=== PATIENT | male | born 1985 | race Caucasian/White ===

== ENCOUNTER → 2018-02-02 | Outpatient (CLI) | payer OTHER ==
--- NOTE | 2018-02-02 08:44 | RAD ---
Abdominal ultrasound, 02/02/2018: HISTORY: Elevated liver enzymes The gallbladder is within normal limits in size. It contains multiple echogenic foci with posterior acoustic shadowing compatible with gallstones. The gallbladder wall is not significantly thickened. No pericholecystic edema is seen. The common hepatic duct is of normal caliber. The visualized portions of the liver and both kidneys are unremarkable. The spleen is of normal size. The pancreas was poorly defined due to overlying bowel. The visualized portions of the aorta and inferior vena cava are unremarkable. No free fluid is evident in the abdomen. IMPRESSION: Cholelithiasis Electronically signed by: Parker Boyer MD (02/02/2018 8:40 AM) [facility]
== END | disposition home or self-care (01) ==
LOC: US 07:34
PROVIDERS: ATTEND Physician Assistant
DX: K80.20 Calculus of gallbladder without cholecystitis without obstruction (principal)
CPT/HCPCS: 76700

== ENCOUNTER 2018-03-08 11:53 | Emergency (ER) | payer OTHER ==
[~2018-03-08] VITALS: Ht 177.8 cm; Wt 106.6 kg
[2018-03-08] MEDS ORDERED: 0.9 % SODIUM CHLORIDE 10 ML DISP.SYRIN. IV PRN (12:15)
[2018-03-08] MEDS: IV NORMAL SALINE 1,000ML 1,000 ML IV SCH ×2 (12:19→12:56)
--- NOTE | 2018-03-08 12:23 | PHYS DOC ---
Past History Past Medical History: Gallstones Adult General Chief Complaint Chief Complaint: ABDOMINAL PAIN HPI HPI 32-year-old male patient with history of cholelithiasis was scheduled to have surgery 4 days ago but because of sickness his surgery was postponed. Patient complaining of right upper quadrant constant pain since 7 AM with radiation to the back and rated his pain 10 over 10. Patient complaining of nausea and 3 episodes of vomiting without diarrhea, fever and chills, urinary symptom. Patient states he had fatty food last night. Review of Systems Review of Systems Constitutional: Denies fever or chills [] Eyes: Denies change in visual acuity, redness, or eye pain [] HENT: Denies nasal congestion or sore throat [] Respiratory: Denies cough or shortness of breath [] Cardiovascular: No additional information not addressed in HPI [] GI: Reports abdominal pain, nausea, vomiting, denies bloody stools or diarrhea [ ] : Denies dysuria or hematuria [] Musculoskeletal: Denies back pain or joint pain [] Integument: Denies rash or skin lesions [] Neurologic: Denies headache, focal weakness or sensory changes [] Endocrine: Denies polyuria or polydipsia [] All other systems were reviewed and found to be within normal limits, except as documented in this note. Current Medications Current Medications Current Medications Medications (Trade) Dose Ordered Sig/Zainab Start Time Stop Time Status Last Admin Dose Admin Morphine Sulfate (Morphine 4mg Syringe) 4 mg 1X ONCE 03/08/18 12:15 03/08/18 12:16 UNV Ondansetron HCl (Zofran) 4 mg 1X ONCE 03/08/18 12:15 03/08/18 12:16 UNV Sodium Chloride (Normal Saline Flush) 10 ml QSHIFT PRN 03/08/18 12:15 UNV Physical Exam Physical Exam Constitutional: Well developed, well nourished, moderate distress, non-toxic appearance. [] HENT: Normocephalic, atraumatic, oropharynx dry, no oral exudates, nose normal. [] Eyes: PERRLA, EOMI, conjunctiva normal, no discharge. [] Neck: Normal range of motion, no tenderness, supple, no stridor. [] Cardiovascular:Heart rate regular rhythm, no murmur [] Lungs & Thorax: Bilateral breath sounds clear to auscultation [] Abdomen: Bowel sounds normal, soft, right upper quadrant tenderness with positive Vail sign, no masses, no pulsatile masses. [] Skin: Warm, dry, no erythema, no rash. [] Back: No tenderness, no CVA tenderness. [] Extremities: No tenderness, no cyanosis, no clubbing, ROM intact, no edema. [] Neurologic: Alert and oriented X 3, normal motor function, normal sensory function, no focal deficits noted. [] Psychologic: Affect anxious, mood normal. [] EKG EKG [] Radiology/Procedures Radiology/Procedures [] Course & Med Decision Making Course & Med Decision Making Pertinent Labs reviewed. (See chart for details) Evaluation of patient in ER showed 32-year-old male patient with history of cholelithiasis complaining of severe right upper quadrant pain with episodes of nausea and vomiting. Patient had moderate distress with right upper quadrant tenderness at arrival to ER and treated with IV fluid and Zofran and morphine and felt better. Labs was unremarkable. Dr. Lee patient surgeon at [facility] informed at 1312 and agreed with transferring patient to [facility] for possible surgery tomorrow. Dr. Russell accepted transfer to [facility] at 1314. Dragon Disclaimer Dragon Disclaimer This electronic medical record was generated, in whole or in part, using a voice recognition dictation system. Departure Departure: Impression: Primary Impression: Biliary colic Additional Impressions: Nausea and vomiting Cholelithiasis Disposition: XF [facility] HOSP (to [facility] 1314) Admitting Physician: Robbi Russell (accepted transfer to [facility] at 1314) Condition: IMPROVED Referrals: PETE CARDOZA (PCP) Problem Qualifiers SANDRINE ALEXANDER MD Mar 08, 2018 12:23
[2018-03-08 12:27] LABS: BASO # 0.1 x10^3/uL (0.0-0.2); BASO % 1 % (0-3); EOS # 0.1 x10^3/uL (0.0-0.7); EOS % 1 % (0-3); HEMATOCRIT 46.7 % (39.0-53.0); LYMPH # 1.2 x10^3/uL (1.0-4.8); LYMPH % 14 % (24-48); MEAN CORPUSCULAR HEMOGLOBIN 31 pg (25-35); MEAN CORPUSCULAR HGB CONC 34 g/dL (31-37); MEAN CORPUSCULAR VOLUME 90 fL (79-100); MONO # 0.5 x10^3/uL (0.0-1.1); MONO % 6 % (0-9); NEUT # 6.8 x10^3uL (1.8-7.7); NEUT % 78 % (31-73); PLATELET COUNT 224 x10^3/uL (140-400); RED BLOOD COUNT 5.19 x10^6/uL (4.30-5.70); RED CELL DISTRIBUTION WIDTH 12.4 % (11.5-14.5); WHITE BLOOD COUNT 8.7 x10^3/uL (4.0-11.0)
[2018-03-08 12:40] LABS: ALBUMIN 4.4 g/dL (3.4-5.0); ALBUMIN/GLOBULIN RATIO 1.1 (1.0-1.7); CALCIUM 9.7 mg/dL (8.5-10.1); GFR 86.1; POTASSIUM 3.7 mmol/L (3.5-5.1); TOTAL BILIRUBIN 0.4 mg/dL (0.2-1.0); TOTAL PROTEIN 8.4 g/dL (6.4-8.2)
[2018-03-08] MEDS ORDERED: ONDANSETRON PF 4 MG/2 ML VIAL. IV ONE (12:45)
[2018-03-08] MEDS ORDERED: MORPHINE SULFATE 4 MG/ML DISP.SYRIN. IV ONE (12:45)
[2018-03-08] MEDS ORDERED: IV NORMAL SALINE 1,000ML 1,000 ML IV ONE (13:30)
[2018-03-08] MEDS ORDERED: KETOROLAC 30 MG/ML VIAL. IV ONE (14:00)
[2018-03-08 14:42] VITALS: BP 107/54
[2018-03-08 15:08] LABS: BILIRUBIN,URINE NEG (NEG); CLARITY,URINE CLEAR; COLOR,URINE YELLOW; GLUCOSE,URINE NEG (NEG); NITRITE,URINE NEG (NEG); UROBILINOGEN,URINE 0.2 mg/dL (0.2 mg/dL)
[2018-03-08 15:09] LABS: BACTERIA,URINE 0 /HPF (0-FEW); SQUAMOUS EPITHELIAL CELL,UR FEW /LPF; WBC,URINE OCC /HPF (0-4)
== END 2018-03-08 14:45 | disposition short-term general hospital (02) ==
LOC: ER 11:53
DX: K80.70 Calculus of gallbladder and bile duct without cholecystitis without obstruction (principal)
CPT/HCPCS: 36415; 80053; 81001; 83690; 85025; 96361; 96374; 96375; 99285; J1885; J2270; J2405; J7030

== ENCOUNTER → 2018-10-22 | Outpatient (CLI) | payer OTHER ==
--- NOTE | 2018-10-22 08:53 | RAD ---
Thoracic spine, 10/22/2018: HISTORY: Back pain There is a minimal thoracic scoliosis. The thoracic vertebral heights are well-maintained. No fracture or subluxation is evident. The paraspinous soft tissues are unremarkable. IMPRESSION: 1. Slight thoracic scoliosis. 2. No acute bony abnormality is detected. Electronically signed by: Parker Boyer MD (10/22/2018 8:51 AM) [facility]
== END | disposition home or self-care (01) ==
LOC: PMG 08:01
PROVIDERS: ATTEND Physician Assistant Medical
DX: M54.6 Pain in thoracic spine (principal)
CPT/HCPCS: 72072

== ENCOUNTER → 2018-11-08 | Outpatient (CLI) | payer OTHER ==
--- NOTE | 2018-11-08 12:52 | RAD ---
Left hand radiograph 11/08/2018 12:43 PM INDICATION: Injury to the index finger with swelling COMPARISON: None available. TECHNIQUE: 3 views of the left hand are provided. FINDINGS: There is no acute fracture or dislocation. Bone mineralization is within normal limits. Joint spaces are maintained. Regional soft tissues are within normal limits. There is no soft tissue gas or osseous erosion. IMPRESSION: No acute fracture or dislocation. Electronically signed by: Adele Hilario MD (11/08/2018 12:50 PM) [id number]
== END | disposition home or self-care (01) ==
LOC: PMG 12:14
PROVIDERS: ATTEND Physician Assistant Medical
DX: S69.92XA Unspecified injury of left wrist, hand and finger(s), initial encounter (principal); X58.XXXA Exposure to other specified factors, initial encounter; Y93.89 Activity, other specified; Y92.89 Other specified places as the place of occurrence of the external cause; Y99.8 Other external cause status
CPT/HCPCS: 73130